=== PATIENT | female | born 1990 | race Caucasian/White ===

== ENCOUNTER 2023-04-13 22:01 | Emergency (ER) | payer SELFPAY ==
[~2023-04-13] VITALS: Ht 165.1 cm; Wt 54.7 kg
[2023-04-13 22:01] VITALS: BP 117/95
[~2023-04-13 22:01] MED LIST: CITA20TA4; CYCL10TA9; ORTHOTRYCYCLINE; PRISTIQUE
[2023-04-13] MEDS ORDERED: CEPHALEXIN 250 MG CAPSULE PO ONE (22:15)
[2023-04-13] MEDS ORDERED: CEPH500T PO (22:24)
--- NOTE | 2023-04-13 22:24 | ED Integumentary General ---
General Chief Complaint: Upper Extremity Stated Complaint: L ARM PAIN/LUMP UNDER ARMPIT Nursing Triage Note: Patient states that she developed a lump on her left armpit on 03/31/23. Patient reports increasing pain since then. Patient states that the pain has started to go down her arm and thats why she came in to be seen. The area is slightly red and no drainage noted. Patient denies any symptoms of illness. Source: patient, RN notes reviewed Exam Limitations: no limitations History of Present Illness Date Seen by Provider: Apr 13, 2023 Time Seen by Provider: 22:04 Initial Comments 32-year-old female patient without history of medical problems complaining of painful lump on the left armpit since 03/31/23 with mild pain that after 1 week became better. Patient complaining of increasing pain today with mild incr easing the size of lump. Patient stated the pain radiated into her arm and rated her pain 5/10. Patient denies drainage of pus, fever and chills, injury, history of the same problem. Patient states she applied some warm compress when it was started with improvement of her pain. Allergies and Home Medications Allergies Coded Allergies: No Known Drug Allergies (Unverified Allergy, Mild, 09/09/09) Patient Home Medication List Home Medication List Reviewed: Yes Cephalexin (Cephalexin) 500 Mg Tablet, 1,000 MG PO [id number] Prescribed by: Alexandra doyle on 04/13/232223 Citalopram Hydrobromide (Citalopram Hbr) 20 Mg Tablet, (Reported) Entered as Reported by: FAITH HUMPHREY on 09/09/09 0124 Cyclobenzaprine Hcl (Cyclobenzaprine Hcl) 10 Mg Tablet, (Reported) Entered as Reported by: FAITH HUMPHREY on 09/09/09 0125 Review of Systems Review of Systems Constitutional: no symptoms reported EENTM: no symptoms reported Respiratory: no symptoms reported Cardiovascular: no symptoms reported Gastrointestinal: no symptoms reported Genitourinary: no symptoms reported Musculoskeletal: see HPI Skin: see HPI Psychiatric/Neurological: No Symptoms Reported Endocrine: No Symptoms Reported All Other Systems Reviewed Negative Unless Noted: Yes Past [id number] Hx Patient Social History Tobacco Use?: No Use of E-Cig and/or Vaping dev: Yes E-Cig or Vaping type used: Nicotine Use of E-Cig and/or Vaping Edwin: Current Someday User Substance use?: No Alcohol Use?: No Pt feels they are or have been: No Past Medical History Reproductive Disorders: No Physical Exam Vital Signs Vital Signs - First Documented 04/13/23 22:01 Temp 37.0 Pulse 107 Resp 16 B/P (MAP) 117/95 (102) Pulse Ox 98 O2 Delivery Room Air Capillary Refill : Less Than 3 Seconds General Appearance: WD/WN, no apparent distress (Anxious) HEENT: PERRL/EOMI, normal ENT inspection Neck: non-tender, full range of motion Cardiovascular: no edema Respiratory: chest non-tender, lungs clear, normal breath sounds Back: normal inspection Extremities: normal range of motion, non-tender, normal inspection, no pedal edema Skin: other (2x2 cm tender area with edema on left axillary area with erythema without fluctuation or drainage of pus) Skin Problem Location: upper extremities Skin Problem Character: erythema, tenderness Progress/Results/Core Measures Results/Orders My Orders Orders - ALEXANDRA DOYLE MD Cephalexin Capsule (Cephalexin Capsule) (04/13/23 22:15) Medications Given in ED Current Medications Medications Dose Ordered Sig/Rg Route Start Time Stop Time Status Last Admin Dose Admin Cephalexin HCl 1,000 mg ONCE ONCE PO 04/13/23 22:15 04/13/23 22:17 DC 04/13/23 22:19 1,000 MG Vital Signs/I&O 04/13/23 22:01 Temp 37.0 Pulse 107 Resp 16 B/P (MAP) 117/95 (102) Pulse Ox 98 O2 Delivery Room Air Blood Pressure Mean: 102 Progress Progress Note : Progress Note Patient with tender area in left axillary since 03/31/2023 that getting worse today. Patient had stable vital signs except for mild tachycardia related to her anxiety. Patient had 2 x 2 centimeter area of erythema and erythema on left axillary area without fluctuation. Patient advised to apply moist warm compress and taking cephalexin in ER and prescription for cephalexin was given and advised to return to ER if not getting better after 2 or 3 days. Patient did not want pain medication in ER and advised to take ibuprofen every 8 hours. Patient informed about the diagnosis of folliculitis and cellulitis and needs to return if getting worse for drainage of abscess. Departure Impression Primary Impression: Cellulitis of left axilla Disposition: HOME, SELF-CARE Condition: Stable Departure-Patient Inst. Decision time for Depature: 22:22 Referrals: LISSET ARTHUR MD (PCP/Family) Primary Care Physician Patient Instructions: Cellulitis (Skin Infection), Adult ED Add. Discharge Instructions: Apply moist warm compress under your armpit several times a day Take ibuprofen 600 mg every 8 hours as needed for pain and decrease of inflammation Follow-up with your primary care physician or return to ER in 2 to 3 days if not getting better All discharge instructions reviewed with patient and/or family. Voiced understanding. Scripts Cephalexin (Cephalexin) 500 Mg Tablet 1000 MG PO [id number], #28 TAB 0 Refills Prov: ALEXANDRA DOYLE MD 04/13/23 ALEXANDRA DOYLE MD Apr 13, 2023 22:24
== END 2023-04-13 22:25 | disposition home or self-care (01) ==
LOC: EDUNIT# 22:01 → ER FS 22:02
DX: L03.112 Cellulitis of left axilla (principal); R00.0 Tachycardia, unspecified; F17.290 Nicotine dependence, other tobacco product, uncomplicated
CPT/HCPCS: 99283